=== PATIENT | male | born 1955 | race Caucasian/White ===

== ENCOUNTER 2022-07-28 13:47 | Inpatient (IN) | payer OTHER, MEDICARE ==
[~2022-07-28] VITALS: Ht 190.5 cm; Wt 83.0 kg
[2022-07-28 13:52] VITALS: BP_SYST 161
--- NOTE | 2022-07-28 13:58 | NUR ---
ER Dr. Finley examining patient in triage area.
--- NOTE | 2022-07-28 13:59 | NUR ---
Patient to ER bed 08 to gown for evaluation. Side rails up.
--- NOTE | 2022-07-28 14:00 | NUR ---
Pt came in from home c/o right sided numbness that started at 1345. Pt states he went on bike ride and then walk with his this morning without difficulty. Pt has hx of HTN, gallbladder removal and bilat mastectomy r/t mass found in right breast. While driving to lunch he began experiencing numbness to his left side including flickering in his left eye. Pt decided to come to ED immediately and arrived within 10 min of onset. Code stroke was called and he was taken immediately to CT. Patient is A&OX4, VSS, calm and cooperative. Care to be provided as ordered.
[2022-07-28] MEDS ORDERED: iohexoL 350 mgI/mL, 100 ML INFUS..BTL IV ONE (14:15)
[2022-07-28 14:42] LABS: BASOPHILS # (AUTO) 0.1 K/uL (0.0-0.2); BASOPHILS % (AUTO) 0.8 % (0.0-2.0); EOSINOPHILS # (AUTO) 0.2 K/uL (0.0-0.4); EOSINOPHILS % (AUTO) 3.1 % (0.0-4.0); HEMATOCRIT 43.4 % (36-54); HEMOGLOBIN 15.2 g/dL (14.0-18.0); LYMPHOCYTES # (AUTO) 1.9 K/uL (1.0-5.5); LYMPHOCYTES % (AUTO) 27.6 % (20.5-51.5); MEAN CORPUSCULAR HEMOGLOBIN 30 pg (27-31); MEAN CORPUSCULAR HGB CONC 35 % (32-36); MEAN CORPUSCULAR VOLUME 86 fL (79.0-98.0); MONOCYTES # (AUTO) 0.5 K/uL (0.0-1.0); MONOCYTES % (AUTO) 6.6 % (1.7-9.3); NEUTROPHILS # (AUTO) 4.3 K/uL (1.8-7.7); NEUTROPHILS % (AUTO) 61.9 % (40.0-70.0); PLATELET COUNT (AUTO) 210 K/uL (130-430); RED BLOOD CELL COUNT(AUTO) 5.06 MIL/uL (4.2-6.2); RED CELL DISTRIBUTION WIDTH 13.4 % (9.0-15.0); WHITE BLOOD COUNT (AUTO) 6.9 K/uL (4.8-10.8)
[2022-07-28 14:55] LABS: ANION GAP 8 (5-15); CALCIUM 9.5 mg/dL (8.4-11.0); CHLORIDE 104 mmol/L (98-107); CREATININE 1.05 mg/dL (0.55-1.30); GLUCOSE 100 mg/dL (70-99); UREA NITROGEN, BLOOD 20 mg/dL (8-21)
[2022-07-28 14:57] LABS: GFR AFRICAN AMERICAN 90 mL/min (>90)
[2022-07-28 15:04] LABS: ALANINE AMINOTRANSFERASE 53 U/L (12-78); ALBUMIN 4.3 g/dL (3.4-4.8); ASPARTATE AMINOTRANSFERASE 31 U/L (10-37); PROTHROMBIN TIME 10.4 SECS (9.5-12.5); TOTAL BILIRUBIN 1.6 mg/dL (0.0-1.0)
[2022-07-28] MEDS ORDERED: ASPIRIN 325 MG TABLET PO ONE (18:00)
[2022-07-28] MEDS ORDERED: CLOPIDOGREL BISULFATE 75 MG TABLET PO ONE (18:00)
[2022-07-28] MEDS ORDERED: ATORVASTATIN 20 MG TABLET PO ONE (18:00)
--- NOTE | 2022-07-28 18:11 | NUR ---
Swabbed for COVID, sent to lab.
--- NOTE | 2022-07-28 18:14 | NUR ---
Admit bed requested Patient will be admitted to care of Dr. COSTA. Admitted to TELE unit. Diagnosis CVA SYMPTOMS Inpatient (Yes or No) Y Observation (Yes or No) N Orientation concerns or request close to nursing station (Yes or No) N Covid Status NEG On vent or bipap N Isolation requirements N Needs a sitter N From Home (Yes or if No enter name of facility) YES Requires Dialysis (Yes or No) N Med Rec Completed (Yes of No) Y
--- NOTE | 2022-07-28 18:15 | NUR ---
Medication reconciliation completed with information provided by PATIENT. Any prior medication reconciliation on file was reviewed and corrected.
[2022-07-28] MEDS ORDERED: LISI5TAB PO (18:42)
[2022-07-28] MEDS ORDERED: ASPIRIN 325 MG TABLET ONE (20:42)
[2022-07-28] MEDS ORDERED: CLOPIDOGREL BISULFATE 75 MG TABLET ONE ×2 (20:43→20:47)
[2022-07-28] MEDS ORDERED: ATORVASTATIN 20 MG TABLET ONE (20:50)
[2022-07-28] MEDS: HEPARIN SODIUM,PORCINE 5,000 UNITS/ML VIAL SUBCUT SCH (21:00)
[2022-07-28] MEDS ORDERED: MORPHINE 2 MG/ML INJ. SYRINGE IVP PRN ×2 (21:00)
[2022-07-28] MEDS ORDERED: ONDANSETRON HCL 4 MG/2 ML VIAL IVP PRN (21:00)
[2022-07-28] MEDS ORDERED: POTASSIUM CHLORIDE 20 MEQ TAB.PRT.SR PO PRN (21:00)
[2022-07-28] MEDS ORDERED: MAGNESIUM SULFATE 50 ML IV PRN (21:00)
[2022-07-28] MEDS ORDERED: MUPIROCIN 2% TOPICAL OINTMENT 22 GM NS PRN (21:00)
[2022-07-28] MEDS ORDERED: DOCUSATE SODIUM 100 MG CAPSULE PO PRN (21:00)
[2022-07-28] MEDS ORDERED: ACETAMINOPHEN 325 MG TABLET PO PRN (21:00)
--- NOTE | 2022-07-29 03:54 | NUR ---
COVID SWAB COLLECTED AND SENT TO LAB.
[2022-07-29 07:13] LABS: BASOPHILS # (AUTO) 0.1 K/uL (0.0-0.2); BASOPHILS % (AUTO) 1.3 % (0.0-2.0); EOSINOPHILS # (AUTO) 0.1 K/uL (0.0-0.4); EOSINOPHILS % (AUTO) 3.2 % (0.0-4.0); HEMATOCRIT 44.3 % (36-54); HEMOGLOBIN 15.4 g/dL (14.0-18.0); LYMPHOCYTES # (AUTO) 1.4 K/uL (1.0-5.5); LYMPHOCYTES % (AUTO) 31.3 % (20.5-51.5); MEAN CORPUSCULAR HEMOGLOBIN 30 pg (27-31); MEAN CORPUSCULAR HGB CONC 35 % (32-36); MEAN CORPUSCULAR VOLUME 86 fL (79.0-98.0); MONOCYTES # (AUTO) 0.4 K/uL (0.0-1.0); MONOCYTES % (AUTO) 8.1 % (1.7-9.3); NEUTROPHILS # (AUTO) 2.6 K/uL (1.8-7.7); NEUTROPHILS % (AUTO) 56.1 % (40.0-70.0); PLATELET COUNT (AUTO) 215 K/uL (130-430); RED BLOOD CELL COUNT(AUTO) 5.15 MIL/uL (4.2-6.2); RED CELL DISTRIBUTION WIDTH 13.3 % (9.0-15.0); WHITE BLOOD COUNT (AUTO) 4.6 K/uL (4.8-10.8)
[2022-07-29 07:23] LABS: CREATININE 0.97 mg/dL (0.55-1.30)
--- NOTE | 2022-07-29 10:00 | NUR ---
ADMIT NOTE Received pt from ER to telemetry floor with a diagnosis of CVA. Admission process initiated. Patient alert and oriented. Denies pain or discomfort. Patient oriented to pain management, safety and call light-teach back done. Patient placed on telemetry windows application developer.
--- NOTE | 2022-07-29 10:47 | NUR ---
Patient will be admitted to [facility]. Admitted to TELE unit. Will go to room 107A. Belongings list completed. Complete and up to date summary report printed. SBAR report to be given at bedside with opportunity for questions.
[2022-07-29] MEDS: ASPIRIN 81 MG TAB.CHEW PO SCH (11:40)
[2022-07-29] MEDS: ATORVASTATIN 20 MG TABLET PO SCH (11:40)
[2022-07-29] MEDS: CLOPIDOGREL BISULFATE 75 MG TABLET PO SCH (11:40)
[2022-07-29] MEDS: HEPARIN SODIUM,PORCINE 5,000 UNITS/ML VIAL SUBCUT SCH ×2 (11:47→20:55)
[2022-07-29 12:22] VITALS: BP_SYST 142
--- NOTE | 2022-07-29 14:10 | NUR ---
PATIENT BELONGINGS Tennis shoes retrieved from ER. Returned to patient's bedside.
--- NOTE | 2022-07-29 15:53 | NUR ---
CONSULT NEUROLOGY TIA MARKUS ROSE SENT A TEXT MESSAGE TO DR REDD
[2022-07-29 16:30] VITALS: BP_SYST 136
[2022-07-29 17:29] LABS: CHOLESTEROL 219 mg/dL (<200); HDL CHOLESTEROL 61 mg/dL (>45); LDL CHOLESTEROL 142 mg/dL (<100); TRIGLYCERIDES 73 mg/dL (30-150)
--- NOTE | 2022-07-29 18:57 | NUR ---
CLOSING NOTE Patient remains sitting in bed watching TV. Reports no pain or discomfort. No facial droop or one sided weakness observed. Call light within reach. All safety precautions observed.
--- NOTE | 2022-07-29 19:35 | NUR ---
RECEIVED PT SITTING AT EDGE OF BED, NO DISTRESS NOTED, DENIES PAIN. SALINE LOCK TO LAC SITE CDI. SCAB NOTED TO LLE. NO MOTOR IMPAIRMENT, GAIT STEADY, NO LOSS OF COORDINATION. EQUAL STRENGTH TO ALL EXTREMITIES
[2022-07-29 20:30] VITALS: BP_SYST 128
[2022-07-30 00:28] VITALS: BP_SYST 150
[2022-07-30 02:40] VITALS: BP_SYST 131
[2022-07-30 07:02] LABS: BASOPHILS % (AUTO) 0.9 % (0.0-2.0); EOSINOPHILS # (AUTO) 0.2 K/uL (0.0-0.4); EOSINOPHILS % (AUTO) 3.7 % (0.0-4.0); HEMATOCRIT 43.8 % (36-54); HEMOGLOBIN 15.1 g/dL (14.0-18.0); LYMPHOCYTES # (AUTO) 1.5 K/uL (1.0-5.5); LYMPHOCYTES % (AUTO) 28.9 % (20.5-51.5); MEAN CORPUSCULAR HEMOGLOBIN 30 pg (27-31); MEAN CORPUSCULAR HGB CONC 35 % (32-36); MEAN CORPUSCULAR VOLUME 86 fL (79.0-98.0); MONOCYTES # (AUTO) 0.4 K/uL (0.0-1.0); MONOCYTES % (AUTO) 7.2 % (1.7-9.3); NEUTROPHILS % (AUTO) 59.3 % (40.0-70.0); PLATELET COUNT (AUTO) 205 K/uL (130-430); RED BLOOD CELL COUNT(AUTO) 5.11 MIL/uL (4.2-6.2); RED CELL DISTRIBUTION WIDTH 13.5 % (9.0-15.0)
[2022-07-30] MEDS ORDERED: LIP10 PO (07:45)
[2022-07-30] MEDS ORDERED: ASPI-1393 PO (07:45)
[2022-07-30 07:51] LABS: CALCIUM 9.2 mg/dL (8.4-11.0); CREATININE 1.06 mg/dL (0.55-1.30)
[2022-07-30 08:30] VITALS: BP_SYST 140
[2022-07-30] MEDS: ASPIRIN 81 MG TAB.CHEW PO SCH (09:13)
[2022-07-30] MEDS: CLOPIDOGREL BISULFATE 75 MG TABLET PO SCH (09:14)
[2022-07-30] MEDS: ATORVASTATIN 20 MG TABLET PO SCH (09:14)
[2022-07-30] MEDS: HEPARIN SODIUM,PORCINE 5,000 UNITS/ML VIAL SUBCUT SCH (09:19)
--- NOTE | 2022-07-30 11:20 | NUR ---
P.T. NOTES P.T. EVAL COMPLETED; ENDORSED TO NURSING; REFER TO EVAL FOR DETAILS.
[2022-07-30 11:23] VITALS: BP_SYST 134
[2022-07-30 16:30] VITALS: BP_SYST 130
--- NOTE | 2022-07-30 18:41 | NUR ---
PATIENT DISCHARGE WITH A COPY OF DISCHARGE INSTRUCTION AND HIS PERSONAL BELONGINGS TO HOME. AWARE TO FOLLOW UP WITH NEUROLOGY IN 3 WEEKS. SAYS HE WILL NOT BE IN [facility] HE IS CURRENTLY OBLIGATED TO BE IN [place] AT THIS TIME. IV CATHETER, A 20 GAUGE IS INTACT UPON REMOVAL. PATIENT IDENTIFICATION BAND REMOVAL FOR SHREDDER.
== END 2022-07-30 18:44 | disposition home or self-care (01) | DRG 66 ==
LOC: SED 13:47 → STU 18:11
PROVIDERS: ADMIT Family Medicine; ATTEND Family Medicine
DX: I63.9 Cerebral infarction, unspecified (principal); G90.9 Disorder of the autonomic nervous system, unspecified; I10 Essential (primary) hypertension; G90.8 Other disorders of autonomic nervous system; Z20.822 Contact with and (suspected) exposure to COVID-19; Z88.2 Allergy status to sulfonamides; Z79.899 Other long term (current) drug therapy
CPT/HCPCS: 36415; 70450-TC; 70496; 70498; 70551; 71045; 76376; 80048; 80053; 80061; 82550; 83605; 83735; 83880; 84484; 85025; 85610-TC; 85730-TC; 93005; 97163-GP; 99285; G0378; J1644; Q9967